=== PATIENT | male | born 1970 | race Caucasian/White ===

== ENCOUNTER 2023-02-19 21:46 | Emergency (ER) | payer SELFPAY ==
[2023-02-19 21:49] VITALS: BP 108/64; PULSE 75; RESP 16; TEMP 36.7; O2SAT 100; BMI 19.2
--- NOTE | 2023-02-19 21:53 | ED_ITS ---
HPI - Abdominal Pain General Chief Complaint: Abdominal Pain Stated Complaint: GASTRIC TUBE COMP Time Seen by Provider: 02/19/23 21:53 History of Present Illness HPI narrative: She presents to emergency department via EMS with a complaint of a J-tube leaking. He states he had a J-tube replaced 2 weeks ago at [facility]. Patient is not currently doing tube feedings. He has esophageal CA. Patient states today he laid out in the sun and noticed that there was some yellow Drainage leaking from the outside of the tooth. He states feels like his belly is burning. He denies any pain, swelling, or edema. Denies any nausea, vomiting. He denies any diarrhea, constipation. Denies any fever, or chills. She was concerned because of the leakage that he saw from the site. Denies any erythema.Patient states he came here because 2 weeks ago he went to [place] and they had to be transferred from there to [facility] because they did not have anyone to do the jtube there. Related Data Home Medications Medication Instructions Recorded Confirmed acetaminophen 325 mg tablet 325 mg PO Q4H PRN pain 02/19/23 02/19/23 (Masophen) alprazolam liquid 0.5 ml G-tube TID 02/19/23 02/19/23 duloxetine 60 mg capsule,delayed 60 mg PO DAILY 02/19/23 02/19/23 release (Cymbalta) ibuprofen 20 ml G-tube QID 02/19/23 02/19/23 morphine 30 mg tablet,extended 30 mg PO Q8H 02/19/23 02/19/23 release oxycodone 15 mg tablet 15 mg PO Q4H 02/19/23 02/19/23 pregablalin 150 mg G-tube TID 02/19/23 02/19/23 Allergies Allergy/AdvReac Type Severity Reaction Status Date / Time No Known Drug Allergies Allergy Verified 02/19/23 21:55 Review of Systems ROS Status of ROS 10 or more systems reviewed and unremarkable except as noted in history and below [facility] Social History Smoking status: Current every day smoker Exam Narrative Exam Narrative: Nurses notes and vital signs reviewed and patient is not hypoxic. General: Nontoxic, Well-appearing and in no apparent distress. Skin: Warm, dry, no pallor noted. No Rash Head: Normocephalic, atraumatic. Neck: Supple, non-tender. Eye: Pupils are equal, round and EOMI. No scleral icterus. Ears, Nose, Mouth, and Throat: TM clear, no posterior oropharynx erythema or nasal mucosal hypertrophy, uvula is mid-line Oral mucosa is moist Cardiovascular: Regular Rate and Rhythm without murmur, gallop or rub. Respiratory: No accessory muscle use or respiratory distress. Lungs are clear to auscultation, no wheezing, rales or rhonchi Chest Wall: no tenderness Back: No midline thoracic or lumbar vertebral tenderness. No CVA tenderness Musculoskeletal: normal ROM, no calf or popliteal tenderness, no lower extremi ty edema/swelling GI: Abdomen is soft, non-distended. Normal bowel sounds. No masses appreciated. Left abdomen J-tube in place. There is no erythema, or drainage noted. No tenderness to palpation. No rebound, guarding, or rigidity noted. Neurological: A&O x4. No cranial nerve dysfunction observed. No truncal ataxia. Moves all extremities. Sensation intact. Psychiatric: Cooperative and interactive. Normal mood and affect. Constitutional Vital Signs, click to edit/add: Last Vital Signs Temp 98.1 F 02/19/23 21:49 Pulse 75 02/19/23 21:49 Resp 16 02/19/23 21:49 BP 108/64 02/19/23 21:49 Pulse Ox 100 02/19/23 21:49 O2 Del Method Room Air 02/19/23 21:49 Course Vital Signs Vital signs: Vital Signs Temperature 98.1 F 02/19/23 21:49 Pulse Rate 75 02/19/23 21:49 Respiratory Rate 16 02/19/23 21:49 Blood Pressure 108/64 02/19/23 21:49 Pulse Oximetry 100 02/19/23 21:49 Oxygen Delivery Method Room Air 02/19/23 21:49 Temperature 98.1 F 02/19/23 21:49 Pulse Rate 75 02/19/23 21:49 Respiratory Rate 16 02/19/23 21:49 Blood Pressure 108/64 02/19/23 21:49 Pulse Oximetry 100 02/19/23 21:49 Oxygen Delivery Method Room Air 02/19/23 21:49 MDM - Abdominal Pain MDM Narrative Medical decision making narrative: Discussed with the patient will need to do an x-ray with contrast to ensure the feeding tube is in place. When x-ray was ready to do the testing the patient insisted that he did not want any contrast going through the tube. He states that the might feel like it's burning. Question dependent patient several times he is not ALLERGIC to contrast. 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 She Wanted to leave against medical advice. He refused the testing. Patient does not have any cognitive impairment. he is nontoxic, abdomen is benign and nonsurgical.I asked patient that he could sustained to the testing that he could return changes his mind that if his choosing to leave right now he would have to leave against medical advice and he signed the paperwork and left. At this time the patient is without objective evidence of an acute process requiring hospitalization or inpatient management. The patient has remained hemodynamically stable. No additional indication for emergent studies at this time. I answered all questions. Discussed discharge instructions including standard anticipatory guidance and what should prompt a return to the emergency department, including if they get worse are not getting better or develops any new or concerning symptoms. I've given them specific time frame in which to follow-up, and who to follow-up with. The patient demonstrates understanding. Patient is nontoxic and stable for discharge with outpatient follow-up. This note was created with the assistance of a speech recognition program. Although the intention is to generate documents that actually reflects the content of the visit, no guarantees can be provided that every mistake has been identified and corrected by editing. Discharge Plan Discharge Chief Complaint: Abdominal Pain Clinical Impression: Jejunostomy tube leak Patient Disposition: Left Against Medical Advice Time of Disposition Decision: 22:27 Condition: Good Mode of Transportation: Private Vehicle Prescriptions / Home Meds: No Action acetaminophen [Masophen] 325 mg tablet 325 mg PO Q4H PRN (Reason: pain) Rx Instructions: With Oxycodone oxycodone 15 mg tablet 15 mg PO Q4H morphine 30 mg tablet extended release 30 mg PO Q8H alprazolam liquid 0.5 ml G-tube TID Rx Instructions: 0.50 ml am and afternoon, 1 ml at HS pregablalin 150 mg G-tube TID duloxetine [Cymbalta] 60 mg capsule,delayed release(DR/EC) 60 mg PO DAILY ibuprofen 20 ml G-tube QID Stand Alone Forms: Portal Instructions
== END 2023-02-19 22:23 | disposition left against medical advice (07) ==
PROVIDERS: Emergency Provider Emergency Medicine
DX: K94.19 Other complications of enterostomy (principal); C15.9 Malignant neoplasm of esophagus, unspecified; F17.210 Nicotine dependence, cigarettes, uncomplicated; Z79.899 Other long term (current) drug therapy; Z53.29 Procedure and treatment not carried out because of patient's decision for other reasons
CPT/HCPCS: 99281